=== PATIENT | male | born 1975 | race Caucasian/White ===

== ENCOUNTER 2017-06-10 19:02 | Emergency (ER) | payer OTHER, SELFPAY ==
[~2017-06-10] VITALS: Ht 177.8 cm; Wt 72.3 kg
[2017-06-10] MEDS ORDERED: SODIUM CHLORIDE FLUSH 10ML SYR IVF ONE (19:30)
[2017-06-10] MEDS ORDERED: ONDANSETRON 2MG/ML, 2ML IVPush ONE (19:30)
[2017-06-10] MEDS ORDERED: MORPHINE SULFATE 4 MG/ML, 1ML IVPush PRN (19:30)
[2017-06-10] MEDS ORDERED: KETOROLAC 30 MG/1 ML IVPush ONE (19:30)
[2017-06-10] MEDS ORDERED: MORPHINE SULFATE 4 MG/ML, 1ML ONE (19:42)
[2017-06-10] MEDS ORDERED: KETOROLAC 30 MG/1 ML ONE (19:43)
[2017-06-10] MEDS ORDERED: ONDANSETRON 2MG/ML, 2ML ONE (19:43)
[2017-06-10 19:46] LABS: BLOOD UREA NITROGEN 58 mg/dL (7-18)
[2017-06-10] MEDS ORDERED: SODIUM CHLORIDE 0.9% 1,000 ML IV ONE (20:30)
[2017-06-10] MEDS ORDERED: SODIUM CHLORIDE 0.9% 1,000ML IVBOLUS ONE (20:30)
[2017-06-10 20:48] VITALS: BP 116/67
== END 2017-06-10 21:21 | disposition left against medical advice (07) ==
LOC: ED 20:41
DX: R10.12 Left upper quadrant pain (principal); R10.84 Generalized abdominal pain; E86.0 Dehydration; N17.9 Acute kidney failure, unspecified; Z87.891 Personal history of nicotine dependence
CPT/HCPCS: 36415; 74000; 76770; 80048; 82040; 85025; 93005; 96361; 96374; 96375; 99285; J1885; J2405; J7030